=== PATIENT | male | born 1975 | race Caucasian/White ===

== ENCOUNTER 2019-03-12 22:58 | Observation (INO) ==
[2019-03-12] MEDS ORDERED: SUCRALFATE 1 GM TAB PO STA (23:11)
[2019-03-12] MEDS ORDERED: PANTOprazole 40 MG TAB PO STA (23:11)
[2019-03-12] MEDS ORDERED: GI COCKTAIL ED USE PO ONE (23:11)
[2019-03-13 00:02] LABS: Basophils # (auto) 0.06 K/uL (0-0.2); Basophils % (auto) 0.6 %; Eosinophils # (auto) 0.07 K/uL (0-0.5); Eosinophils % (auto) 0.7 %; Hematocrit (blood only) 46.9 % (42-52); Hemoglobin 16.5 g/dL (14.0-18.0); Immature Granulocytes # (auto) 0.01 K/uL (0.00-0.02); Immature Granulocytes % (auto) 0.1 %; Lymphocytes # (auto) 3.85 K/uL (1.2-3.4); Mean Corpuscular Hemoglobin 34.8 pg (25-34); Mean Corpuscular Hgb Conc 35.2 g/dL (32-36); Mean Corpuscular Volume 98.9 fL (80-100); Mean Platelet Volume 10.2 fL (7.4-10.4); Monocytes # (auto) 0.64 K/uL (0.11-0.59); Monocytes % (auto) 6.6 %; Platelet Count 291 K/uL (130-400); RDW Coefficient of Variation 12.5 % (11.5-14.5); RDW Standard Deviation 45.4 fL (36.4-46.3); Red Blood Count 4.74 M/uL (4.7-6.1); White Blood Count 9.63 K/uL (4.8-10.8)
[2019-03-13 00:14] LABS: D Dimer 190 ug/L FEU (0-500)
[2019-03-13 00:19] LABS: Alanine Aminotransferase 89 U/L (12-78); Albumin Level 3.8 gm/dl (3.4-5.0); Aspartate Aminotransferase 60 U/L (15-37); BUN Creatinine Ratio 10.8 (10-20); Blood Urea Nitrogen 13 mg/dl (7-18); Carbon Dioxide 23 mmol/L (21-32); Chloride 106 mmol/L (98-107); Est GFR (African American) 85.9; Est GFR (Non-African American) 74.1; Glucose 87 mg/dl (70-99); Lipase 203 U/L (73-393); Potassium 3.7 mmol/L (3.5-5.1); Sodium 139 mmol/L (136-145)
[2019-03-13 00:25] LABS: Albumin Globulin Ratio 0.9 (0.9-2); Alkaline Phosphatase 49 U/L (45-117); Bilirubin,Total 0.5 mg/dl (0.2-1); Creatine Kinase 100 U/L (39-308); Creatine Kinase MB < 1.0 ng/ml (0.5-3.6); Globulin 4.3 gm/dl (2.5-4.0); Total Protein 8.1 gm/dl (6.4-8.2); Troponin I < 0.015 ng/ml (0-0.045)
[2019-03-13] MEDS ORDERED: LORazepam 1 MG TAB SL STA (01:17)
[2019-03-13] MEDS ORDERED: cloNIDine HCL 0.3 MG/24 HR TRANSDERM SYS TD STA (01:28)
--- NOTE | 2019-03-13 01:48 | Emergency Department Note ---
Entered by Roberth Mcclendon acting as a scribe for History of Present Illness General Chief complaint: Chest Pain Stated complaint: CHEST PAIN Source: patient History of Present Illness Onset (ago): week(s) (a few weeks ago) Location: chest Pain Consistency: + intermittent Quality: + other (chest tightness) Associated symptoms: + other (Positive for palpitations.) The patient is a 44 year old male who presents to the emergency department with complaints of intermittent chest tightness beginning a few weeks ago. The patient states that he has had chest tightness that feels like a squeezing. He notes that nothing makes his chest tightness better or worse. He also complains of palpitations. He reports that he has a history of anxiety and hypertension, and he states that he takes Valsartan. He notes that he smokes cigarettes. He reports that he drinks alcohol often, but he states that he has never been in withdrawal. Home Medications Home Medications Medication Instructions Recorded Confirmed Type olmesartan 40 mg PO DAILY 03/12/19 03/12/19 History omeprazole 20 mg PO DAILY 03/12/19 03/12/19 History travoprost [Travatan Z] 1 drp OPB DAILY 03/12/19 03/12/19 History Allergies Allergy/AdvReac Type Severity Reaction Status Date / Time No Known Allergies Allergy Unverified 03/12/19 23:23 Past Med/Surg History Medical History (Updated 03/13/19 @ 01:19 by Milad Cevallos MD) Anxiety Hypertension Family History (Updated 03/12/19 @ 23:07 by Roberth Mcclendon) Other No significant family history Social History (Updated 03/12/19 @ 23:08 by Roberth Mcclendon) Current Living Situation: Family current occupational status: retired Feels Safe at Home: Yes Smoking Status: Current some day smoker Hx Alcohol Use: Yes Review of Systems See HPI for pertinent positives & negatives. and A total of 10 systems reviewed and were otherwise negative Physical Exam Vital Signs Vital Signs - 24 hr 03/12/19 22:47 03/12/19 23:11 03/13/19 00:01 Temperature 36.6 C Temperature Source Oral Pulse Rate 97 H Pulse Rate [Apical] 96 H Pulse Rhythm [Apical] Regular Respiratory Rate 18 20 Respiratory Effort / Characteristics Non-Labored Spontaneous Non-Labored Spontaneous Respiratory Depth Normal Normal Respiratory Pattern Regular Regular Blood Pressure 132/81 Blood Pressure [Right Arm] 123/75 Blood Pressure Mean 98 Blood Pressure Mean [Right Arm] 91 Blood Pressure Position Sitting Blood Pressure Position [Right Arm] Sitting Pulse Oximetry 95 98 98 Oxygen Delivery Method Room Air Room Air Room Air Sepsis Recent Fever Within 48 Hours No Sepsis New/Unexplained Change in Mental Status No Sepsis Action Taken by Nursing No Action Required GENERAL: Awake, alert, well-appearing, in no acute distress HENT: Normocephalic, atraumatic. Oropharynx unremarkable. EYES: Normal conjunctiva. Sclera non-icteric. NECK: Supple. No nuchal rigidity. FROM. No JVD. RESPIRATORY: Clear to auscultation. CARDIAC: Regular rate, normal rhythm. Extremities warm and well perfused. Pulses equal. ABDOMEN: Soft, non-distended. No tenderness to palpation. No rebound or guarding. No masses. RECTAL: Deferred. MUSCULOSKELETAL: Chest examination reveals no tenderness. The back is symmetrical on inspection without obvious abnormality. There is no CVA tenderness to palpation. No joint edema. LOWER EXTREMITIES: Calves are equal size bilaterally and non-tender. No edema. No discoloration. NEURO: Normal sensorium. No sensory or motor deficits noted. SKIN: No jaundice noted. Scaly plaques. Course Course 2259: The patient was evaluated in room A12. A complete history and physical exam was performed. 0112: I rechecked the patient. 0130: Upon reevaluation, the patient is stable. I discussed the findings and the treatment plan with the patient. He expresses agreement and understanding. I spoke with Dr. Daley of the [facility] [place] Service. The patient will be evaluated for further management. Consultations Consultation #1: I reviewed the patient's case with Dr. Daley - Hospitalist, [facility]. He will evaluate the patient for further management. Time: 01:30 Administered Medications Discontinued Medications Al Hydrox/Mg Hydrox/Simethicone () 1 dose PO ONE ONE Stop: 03/12/19 23:12 Last Admin: 03/12/19 23:24 Dose: 1 dose Documented by: [id number] Lorazepam (Ativan) 2 mg SL NOW STA Stop: 03/13/19 01:18 Last Admin: 03/13/19 01:28 Dose: 2 mg Documented by: [id number] Pantoprazole Sodium (Protonix) 40 mg PO NOW STA Stop: 03/12/19 23:12 Last Admin: 03/12/19 23:24 Dose: 40 mg Documented by: [id number] Sucralfate (Carafate Tab) 1 gm PO NOW STA Stop: 03/12/19 23:12 Last Admin: 03/12/19 23:24 Dose: 1 gm Documented by: [id number] Medical Decision Making Differential Diagnosis Differential diagnosis: Etiologies such as shingles, musculoskeletal pain, pericarditis, myocarditis, cardiac ischemia, pericardial tamponade, pneumonia, pneumothorax, pleural effusion, hemothorax, pleurisy, aortic pathology, pulmonary embolism, intra- abdominal process, as well as others were considered. Medical Records Attestation: I reviewed the patient's medical records. Home Medications Current Medication List: was personally reviewed by me Laboratory Data Attestation: I reviewed the patient's lab results. Result diagrams: 03/12/19 23:48 03/12/19 23:48 Lab Results 03/12/19 03/12/19 03/12/19 Range/Units 23:48 23:48 23:48 WBC 9.63 (4.8-10.8) K/uL RBC 4.74 (4.7-6.1) M/uL Hgb 16.5 (14.0-18.0) g/dL Hct 46.9 (42-52) % MCV 98.9 (80-100) fL MCH 34.8 H (25-34) pg MCHC 35.2 (32-36) g/dL RDW Std Deviation 45.4 (36.4-46.3) fL RDW Coeff of Shannon 12.5 (11.5-14.5) % Plt Count 291 (130-400) K/uL MPV 10.2 (7.4-10.4) fL Immature Gran % (Auto) 0.1 % Neut % (Auto) 52.0 % Lymph % (Auto) 40.0 % [place] % (Auto) 6.6 % Eos % (Auto) 0.7 % Baso % (Auto) 0.6 % Immature Gran # (Auto) 0.01 (0.00-0.02) K/uL Neut # (Auto) 5.00 (1.4-6.5) K/uL Lymph # (Auto) 3.85 H (1.2-3.4) K/uL [place] # (Auto) 0.64 H (0.11-0.59) K/uL Eos # (Auto) 0.07 (0-0.5) K/uL Baso # (Auto) 0.06 (0-0.2) K/uL D-Dimer 190 (0-500) ug/L FEU Sodium 139 (136-145) mmol/L Potassium 3.7 (3.5-5.1) mmol/L Chloride 106 (98-107) mmol/L Carbon Dioxide 23 (21-32) mmol/L Anion Gap 11.0 (3-11) BUN 13 (7-18) mg/dl Creatinine 1.18 (0.6-1.4) mg/dl Est Cr Clr Drug Dosing Not Reportable Est GFR ( Amer) 85.9 Est GFR (Non-Af Amer) 74.1 BUN/Creatinine Ratio 10.8 (10-20) Glucose 87 (70-99) mg/dl Calcium 9.0 (8.5-10.1) mg/dl Total Bilirubin 0.5 (0.2-1) mg/dl AST 60 H (15-37) U/L ALT 89 H (12-78) U/L Alkaline Phosphatase 49 (45-117) U/L Total Creatine Kinase 100 (39-308) U/L CK-MB (CK-2) < 1.0 (0.5-3.6) ng/ml CK/CKMB % Calc TNP Troponin I < 0.015 (0-0.045) ng/ml Total Protein 8.1 (6.4-8.2) gm/dl Albumin 3.8 (3.4-5.0) gm/dl Globulin 4.3 H (2.5-4.0) gm/dl Albumin/Globulin Ratio 0.9 (0.9-2) Lipase 203 (73-393) U/L Imaging Data Attestation: I personally reviewed and interpreted this imaging study as follows: My Impression: 1 VIEW CHEST X-RAY: No pneumonia, congestion, or pneumothorax. ECG Data Attestation: I personally reviewed and interpreted this ECG as follows: Indication: + chest pain Rate (beats per minute): 101 Rhythm: + sinus tachycardia ECG ST segments: no ST depression and no ST elevation ECG Findings: + PVCs (frequent) Additional Comments: QTC 459. Blood Pressure Blood Pressure Findings: Elevated blood pressure Blood Pressure Disposition: elevated BP felt to be situational MDM Narrative This is a 44-year-old male who presents emergency department complaining of chest pain. Patient was sent in by [facility] rehab facility where the patient started today. Patient has been drinking approximately 1 pint of whiskey every 2 or 3 days. Patient denies being in withdrawal but he appears extremely anxious with what appears to be asterixis. He was given 2 mg of Ativan here in the emergency department. His EKG is showing multiple PVCs. Patient is a smoker. Based on these findings I am concerned that the patient will have poor follow-up as he is not from this area. Patient originally wished to go back to [facility] and was hoping they could send him home. When he realized that this was probably not going to happen he asked to be admitted here to the hospital. In the meantime the patient was placed on a clonidine patch. I did discuss the case with the hospitalist service who did agree to admit the patient. Impression & Plan Chest pain Discharge Plan Visit Data Chief Complaint: Chest Pain Stated Complaint: CHEST PAIN ED Provider: Milad Cevallos Discharge Problem: Chest pain Patient Disposition: Home - Self-Care Discharge Instructions Krames/Other Patient Handouts: ED Chest Pain Atypical Unkn Cause Activity Restrictions/Additional Instructions: Recommend admission to hospital Recommend close follow up with Cardiology No strenuous activity until follow up You have been examined and treated today on an emergency basis only. This is not a substitute for, or an effort to provide, complete comprehensive medical care. It is impossible to recognize and treat all injuries or illnesses in a single emergency department visit. It is therefore important that you follow up closely with your PCP. Call as soon as possible for an appointment. Thank you for your time and consideration. I look forward to speaking with you again soon. Please don't hesitate to call us if you have any questions. Forms Stand Alone Forms: Call Back Authorization, My [facility], Important Visit Information Prescriptions Prescriptions: No Action travoprost [Travatan Z] 0.004 % drops 1 drp OPB DAILY RF: 0 omeprazole 20 mg capsule,delayed release(DR/EC) 20 mg PO DAILY RF: 0 olmesartan 40 mg tablet 40 mg PO DAILY RF: 0 Referrals Referrals: PCP,NO [Primary Care Provider] - Discharge Problem: Chest pain Qualifiers: Chest pain type: unspecified Qualified Code(s): R07.9 - Chest pain, unspecified The scribe's documentation has been prepared under my direction and personally reviewed by me in its entirety. I confirm that the note above accurately refl ects all work, treatment, procedures, and medical decision making performed by me.
--- NOTE | 2019-03-13 02:06 | History & Physical Report ---
Date of Service March 13, 2019 Assessment & Plan (1) Chest pain: Obs tele serial trops echo PRN NTG (2) Psoriasis: Chronic condition. (3) Anxiety: prn Ativan (4) Hypertension: Continue olmesartan Clonidine patch started in the ED. History of Present Illness 44 y/o male presented to the ED with complaints of intermittent chest tightness beginning a few weeks ago. The patient states that he has had chest tightness that feels like a squeezing. He notes that nothing makes his chest tightness better or worse. He also complains of palpitations. He reports that he has a history of anxiety and hypertension, and he states that he takes Valsartan. He notes that he smokes cigarettes. He reports that he drinks alcohol often, but he states that he has never been in withdrawal. Primary Care Provider: NO PCP Allergies Allergy/AdvReac Type Severity Reaction Status Date / Time No Known Allergies Allergy Unverified 03/12/19 23:23 Home Medications Home Medications Medication Instructions Recorded Confirmed Type olmesartan 40 mg PO DAILY 03/12/19 03/12/19 History omeprazole 20 mg PO DAILY 03/12/19 03/12/19 History travoprost [Travatan Z] 1 drp OPB DAILY 03/12/19 03/12/19 History Past Med/Surg History Medical History (Updated 03/13/19 @ 02:04 by Eamon Daley DO) Anxiety Hypertension Psoriasis Family History Other No significant family history Social History Current Living Situation: Family current occupational status: retired Feels Safe at Home: Yes Smoking Status: Current some day smoker Hx Alcohol Use: Yes Review of Systems Review of Systems: All systems reviewed & are unremarkable except as noted in HPI & below Physical Exam Physical Exam: General- adult male, NAD Head- atraumatic Eyes- PERRL, EOMI, anicteric ENT- oropharynx clear Neck- supple, no JVD, no adenopathy, no thyromegaly. Lungs-CTA b/l no R/R/W. Heart- regular rhythm; no murmur, no gallop, no rub appreciated Abdomen- normal bowel sounds, soft, nontender. 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 Skin- warm & dry with psoriatic lesions to the face and arms. Results & Data Vital Signs (Past 12 Hours) Vital Signs Temp Pulse Pulse Resp BP BP Pulse Ox 03/13/19 01:50 97 H 18 139/69 97 03/13/19 00:01 96 H 20 123/75 98 03/12/19 23:11 98 03/12/19 22:47 36.6 C 97 H 18 132/81 95 Laboratory Results Laboratory Results WBC 9.63 K/uL (4.8-10.8) 03/12/19 23:48 RBC 4.74 M/uL (4.7-6.1) 03/12/19 23:48 Hgb 16.5 g/dL (14.0-18.0) 03/12/19 23:48 Hct 46.9 % (42-52) 03/12/19 23:48 MCV 98.9 fL (80-100) 03/12/19 23:48 MCH 34.8 pg (25-34) H 03/12/19 23:48 MCHC 35.2 g/dL (32-36) 03/12/19 23:48 RDW Std Deviation 45.4 fL (36.4-46.3) 03/12/19 23:48 RDW Coeff of Shannon 12.5 % (11.5-14.5) 03/12/19 23:48 Plt Count 291 K/uL (130-400) 03/12/19 23:48 MPV 10.2 fL (7.4-10.4) 03/12/19 23:48 Immature Gran % (Auto) 0.1 % 03/12/19 23:48 Neut % (Auto) 52.0 % 03/12/19 23:48 Lymph % (Auto) 40.0 % 03/12/19 23:48 [place] % (Auto) 6.6 % 03/12/19 23:48 Eos % (Auto) 0.7 % 03/12/19 23:48 Baso % (Auto) 0.6 % 03/12/19 23:48 Immature Gran # (Auto) 0.01 K/uL (0.00-0.02) 03/12/19 23:48 Neut # (Auto) 5.00 K/uL (1.4-6.5) 03/12/19 23:48 Lymph # (Auto) 3.85 K/uL (1.2-3.4) H 03/12/19 23:48 [place] # (Auto) 0.64 K/uL (0.11-0.59) H 03/12/19 23:48 Eos # (Auto) 0.07 K/uL (0-0.5) 03/12/19 23:48 Baso # (Auto) 0.06 K/uL (0-0.2) 03/12/19 23:48 D-Dimer 190 ug/L FEU (0-500) 03/12/19 23:48 Sodium 139 mmol/L (136-145) 03/12/19 23:48 Potassium 3.7 mmol/L (3.5-5.1) 03/12/19 23:48 Chloride 106 mmol/L (98-107) 03/12/19 23:48 Carbon Dioxide 23 mmol/L (21-32) 03/12/19 23:48 Anion Gap 11.0 (3-11) 03/12/19 23:48 BUN 13 mg/dl (7-18) 03/12/19 23:48 Creatinine 1.18 mg/dl (0.6-1.4) 03/12/19 23:48 Est Cr Clr Drug Dosing Not Reportable 03/12/19 23:48 Est GFR ( Amer) 85.9 03/12/19 23:48 Est GFR (Non-Af Amer) 74.1 03/12/19 23:48 BUN/Creatinine Ratio 10.8 (10-20) 03/12/19 23:48 Glucose 87 mg/dl (70-99) 03/12/19 23:48 Calcium 9.0 mg/dl (8.5-10.1) 03/12/19 23:48 Total Bilirubin 0.5 mg/dl (0.2-1) 03/12/19 23:48 AST 60 U/L (15-37) H 03/12/19 23:48 ALT 89 U/L (12-78) H 03/12/19 23:48 Alkaline Phosphatase 49 U/L (45-117) 03/12/19 23:48 Total Creatine Kinase 100 U/L (39-308) 03/12/19 23:48 CK-MB (CK-2) < 1.0 ng/ml (0.5-3.6) 03/12/19 23:48 CK/CKMB % Calc TNP 03/12/19 23:48 Troponin I < 0.015 ng/ml (0-0.045) 03/12/19 23:48 Total Protein 8.1 gm/dl (6.4-8.2) 03/12/19 23:48 Albumin 3.8 gm/dl (3.4-5.0) 03/12/19 23:48 Globulin 4.3 gm/dl (2.5-4.0) H 03/12/19 23:48 Albumin/Globulin Ratio 0.9 (0.9-2) 03/12/19 23:48 Lipase 203 U/L (73-393) 03/12/19 23:48 Code Status & VTE Plan VTE Prophylaxis Plan VTE Prophylaxis will be ordered: Yes PG Care Time/CCT Total # of Minutes Spent Total Time Spent: 50 Total Time Spent with Patient: Total time spent is greater than 50% in coordination of care (as documented) at patient's floor/unit and/or counseling patient: (1) Chest pain Chest pain type: unspecified Qualified Code(s): R07.9 - Chest pain, unspecified
[2019-03-13] MEDS ORDERED: ACETAMINOPHEN 325 MG TAB PO PRN (03:11)
[2019-03-13] MEDS ORDERED: ONDANSETRON INJ 2 MG/ML 2 ML VIAL IV PRN (03:11)
[2019-03-13] MEDS ORDERED: NITROGLYCERIN SL 0.4 MG/TAB TAB SL PRN (03:11)
[2019-03-13] MEDS: LORazepam 1 MG/2 ML VIAL IV PRN ×3 (05:10→16:32)
--- NOTE | 2019-03-13 06:53 | XRay Report ---
XR chest 1V portable CLINICAL HISTORY: 44 years-old Male presenting with Chest Pain. TECHNIQUE: Portable upright AP view of the chest was obtained. COMPARISON: None. FINDINGS: Cardiomediastinal silhouette normal. No focal opacity. Questionable blunting of the left costophrenic angle. No large effusion or pneumothorax. Osseous structures normal. Upper abdomen normal. IMPRESSION: 1. Questionable trace left pleural effusion. Otherwise no acute cardiopulmonary disease. ACT 112: Negative or not required by law. Electronically signed by: Von Garcia M.D. 03/13/2019 6:52 AM
[2019-03-13] MEDS ORDERED: ENOXAPARIN INJ 40 MG/0.4 ML SYR SQ SCH (08:00)
[2019-03-13] MEDS: CHECK CLONIDINE PATCH PLACEMENT SCH ×2 (08:11→16:11)
--- NOTE | 2019-03-13 08:21 | Hospitalist Progress Note ---
Date of Service March 13, 2019 Assessment & Plan (1) Chest pain: Obs tele serial trops-neg echo: EF 55-60%, Grade I diastolic dysfunction. PRN NTG A1c and Lipid panel pending. Started ASA 81 mg daily and Atorvastatin 40 mg daily. Recommend stress test. Pt lives in [place] and will see his Dr. London zoning assistant with whom he has scheduled appointment on Tuesday. (2) Psoriasis: Chronic condition. (3) Anxiety: prn Ativan (4) Hypertension: Continue olmesartan Clonidine patch started in the ED. Subjective Pt seen and examined at the bedside.Resting comfortably in the bed. Denies any chest pain. Pt denies fever, chills, chest pain, SOB, abdominal pain, frequency or urgency. Pt lives in [place]. Review of Systems Review of Systems: All systems reviewed & are unremarkable except as noted in HPI & below Physical Exam Constitutional: WD/WN, vitals as above well developed and + obese Eyes: PERRL, conjunctivae normal, anicteric sclerae ENMT: external ear and nose normal, oropharynx normal Neck: trachea midline, no thyromegaly Respiratory: normal respiratory effort, lungs clear to auscultation Cardiovascular: RRR, no murmur, no edema Gastrointestinal (Abdomen): normal bowel sounds, soft, nontender, no hepatosplenomegaly Musculoskeletal: no cyanosis or clubbing, extremities motor strength 5/5 Neurologic: patellar DTR's 2+ bilat, sensation intact Lymphatic: no cervical or axillary lymphadenopathy Results & Data Vital Signs (Past 12 Hours) Vital Signs Temp Pulse Pulse Pulse Resp BP BP 03/13/19 07:00 93 H 03/13/19 03:41 100 H 03/13/19 03:16 36.6 C 105 H 16 147/87 H 03/13/19 01:50 97 H 18 139/69 03/13/19 00:01 96 H 20 123/75 03/12/19 23:11 03/12/19 22:47 36.6 C 97 H 18 132/81 Pulse Ox 03/13/19 07:00 03/13/19 03:41 03/13/19 03:16 93 03/13/19 01:50 97 03/13/19 00:01 98 03/12/19 23:11 98 03/12/19 22:47 95 PG Care Time/CCT Total # of Minutes Spent Total Time Spent with Patient: Total time spent is greater than 50% in coordination of care (as documented) at patient's floor/unit and/or counseling patient: (1) Chest pain Chest pain type: unspecified Qualified Code(s): R07.9 - Chest pain, unspecified
[2019-03-13] MEDS ORDERED: OLMESARTAN MEDOXOMIL 40 MG TAB PO SCH (09:00)
[2019-03-13] MEDS ORDERED: PANTOprazole 40 MG TAB PO SCH (09:00)
--- NOTE | 2019-03-13 10:35 | Electrocardiogram Report ---
Test Reason : Blood Pressure : / mmHG Vent. Rate : 101 BPM Atrial Rate : 101 BPM P-R Int : 142 ms QRS Dur : 080 ms QT Int : 354 ms P-R-T Axes : 036 022 034 degrees QTc Int : 459 ms Sinus tachycardia with frequent Premature ventricular complexes Otherwise normal ECG No previous ECGs available Confirmed by Jacoby Monreal ([id number]) on 03/13/2019 10:35:46 AM Referred By: REFERRED SELF Confirmed By:Jacoby Monreal
[2019-03-13 18:29] LABS: Chol HDL Ratio 4; Cholesterol 159 mg/dl (0-200); HDL Cholesterol 37 mg/dl; LDL Cholesterol Calculated 88 mg/dl; Triglycerides 169 mg/dl (0-150); VLDL Cholesterol 34 mg/dl
[2019-03-13] MEDS ORDERED: TRAVOPROST Z 0.004% OPH SOLN 2.5 ML BTL OPB SCH (21:00)
--- NOTE | 2019-03-13 22:28 | Discharge Summary ---
Date of Service March 13, 2019 Principal Diagnosis none Discharge Exam Constitutional WD/WN, vitals as above well developed and + obese Eyes PERRL, conjunctivae normal, anicteric sclerae ENMT external ear and nose normal, oropharynx normal Neck trachea midline, no thyromegaly Respiratory normal respiratory effort, lungs clear to auscultation Cardiovascular RRR, no murmur, no edema Gastrointestinal (Abdomen) normal bowel sounds, soft, nontender, no hepatosplenomegaly Musculoskeletal no cyanosis or clubbing, extremities motor strength 5/5 Neurologic patellar DTR's 2+ bilat, sensation intact Lymphatic no cervical or axillary lymphadenopathy Discharge Data Allergies Allergy/AdvReac Type Severity Reaction Status Date / Time No Known Allergies Allergy Unverified 03/12/19 23:23 Consultations 03/13/19 01:27 ED Decision to Admit Stat Hospital Course (1) Chest pain: Obs tele serial trops-neg echo: EF 55-60%, Grade I diastolic dysfunction. PRN NTG A1c and Lipid panel pending. Started ASA 81 mg daily and Atorvastatin 40 mg daily. Recommend stress test. 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 (2) Psoriasis: Chronic condition. (3) Anxiety: prn Ativan (4) Hypertension: Continue olmesartan Clonidine patch started in the ED. Total Time Total Time Spent Total Time Spent (In Minutes): >30 min Discharge Plan Discharge Items Patient Disposition: Home - Self-Care Reason For Visit: CHEST PAIN Discharge Diagnosis: Atypical chest pain Condition on Discharge: Good Health Concerns: Compliance Activity: Resume your previous activity Non-emergency contact: Primary Care Provider and Pressurization Mechanic Call non-emergency contact if: you have any medication questions and your symptoms worsen Follow-up/Referrals: PCP,NO [Primary Care Provider] - Diet: Heart Healthy Addtl Attending Provider Instructions: You will need to schedule cardiac stress test with your water taxi driver Dr. eKita at [place] within the next 2 weeks. We will start aspirin 81 mg and atorvastatin 40 mg nightly. In case that your muscle start hurts after taking atorvastatin stop medication immediately and check with your primary care physician. Pending Studies at Discharge: Yes Studies:: A1c and lipid panel Stand-Alone Forms: Call Back Authorization, My [employer], Smoking Cessation Medications and DC Order Prescriptions: New nitroglycerin [Nitrostat] 0.4 mg Tablet, Sublingual 0.4 mg sublingual PRN PRN (Reason: chest pain) Qty: 100 RF: 0 aspirin 81 mg tablet,chewable 81 mg PO DAILY Qty: 30 RF: 0 atorvastatin 40 mg tablet 40 mg PO DAILY Qty: 30 RF: 0 Continued travoprost [Travatan Z] 0.004 % drops 1 drp OPB DAILY RF: 0 omeprazole 20 mg capsule,delayed release(DR/EC) 20 mg PO DAILY RF: 0 olmesartan 40 mg tablet 40 mg PO DAILY RF: 0 Discharge Orders: Discharge Order (Routine); Ordered 03/13/19 Ordered By: Kailey Pedraza Admission Data Admit Date/Time: 03/13/19 01:44 Attending Provider: Eamon Daley Admit Provider: Eamon Daley Primary Care Provider: PCP,NO Other Providers: Eamon Daley Other Interventions: Discharge Summary Assessment (RN) Last Done: 03/13/19 19:36 DC Date/Time DO NOT enter until pt leaves facility: 03/13/19 20:29
[2019-03-14 06:53] LABS: Estimated Average Glucose 111 mg/dl; Hemoglobin A1C 5.5 % (4.5-5.6)
== END 2019-03-13 20:29 | disposition home or self-care (01) ==
LOC: ED 22:58 → 2N 22:58